=== PATIENT | male | born 1990 | race Two or more races ===

== ENCOUNTER 2021-08-26 16:30 | Emergency (ER) | payer SELFPAY ==
--- NOTE | 2021-08-26 16:52 | EDM.PDOC ---
ED HPI GENERAL MEDICAL PROBLEM - General Chief Complaint: Upper Extremity Injury/Pain Stated Complaint: FELL Time Seen by Provider: 08/26/21 16:43 Source of Information: Reports: Patient History Limitations: Reports: No Limitations - History of Present Illness INITIAL COMMENTS - FREE TEXT/NARRATIVE: HISTORY AND PHYSICAL: History of present illness: The patient is a 31-year-old male who presents to the emergency room with complaints of right shoulder pain after falling off of a skateboard onto a concrete platform. The patient not take any medication prior to arrival for pain or to do any ice. Patient denies any fever, chills, headache, change in vision, syncope or near syncope. Denies any chest pain, back pain, shortness of breath or cough. Denies any abdominal pain, nausea, vomiting, diarrhea, constipation or dysuria. Has not noted any blood in urine or stool. Patient has been eating and drinking appropriately. Review of systems: As per history of present illness and below otherwise all systems reviewed and negative. Past medical history: As per history of present illness and as reviewed below otherwise noncontributory. Surgical history: As per history of present illness and as reviewed below otherwise noncontributory. Social history: See social history for further information Family history: As per history of present illness and as reviewed below otherwise noncontributory. Physical exam: General: Well developed and well nourished. Alert and orientated x 3. Nontoxic in appearance and in no acute distress. Vital signs are stable and have been reviewed by me. Nursing notes were reviewed. HEENT: Atraumatic, normocephalic, pupils equal and reactive bilaterally, negative for conjunctival pallor or scleral icterus, mucous membranes moist, TMs normal bilaterally, throat clear, neck supple, nontender, trachea midline. No drooling or trismus noted. No meningeal signs. No hot potato voice noted. Lungs: Normal work of breathing, no accessory muscles used. Skin: Intact, warm, dry. No lesions or rashes noted. Hematologic: No petechiae or purpra. Mucosa appropriate color and normal nail bed color and refill. Extremities: No obvious deformities left shoulder. Unable to move patient's arm in any direction due to pain. Moves all extremities per self without difficulty or deficits, negative for cords or calf pain. Neurovascular unremarkable. Neuro: Awake, alert, oriented. Cranial nerves II through XII unremarkable. Cerebellum unremarkable. Motor and sensory unremarkable throughout. Exam nonfocal. Psychiatric: Mood and affect are appropriate. Normal thought process. Answering questions appropriately. Notes: *This patient was seen and evaluated during the 2019 SARS-CoV-2 novel coronavirus pandemic period. Community viral transmission is ongoing at time of this encounter and the emergency department is operating under pandemic response procedures. The patient is a 31-year-old male that presents to the emergency room with complaints of left shoulder pain. No obvious deformity at the collarbone. No obvious deformity at the shoulder. The patient states that he is shoulder. He does not want any pain medication. I have left shoulder x-ray. Left shoulder x-ray IMPRESSION: No fracture is identified. No glenohumeral joint subluxation or dislocation. The acromioclavicular joint appears unremarkable. I informed the patient of the negative x-ray. The patient stated, please just move my arm so I will be so great. Upon attempting to move the patient's arm he starts yelling out and bending his knees as if he is going to the ground. I informed the patient that he would need to be in an arm sling and follow-up with an orthopedic surgeon. I informed the patient that he might need to have a MRI of his shoulder. And that he could use some pain relief. The patient declined any pain medication while at the emergency department. And for the patient that he could use Motrin 600 mg every 6-8 hours for pain. The patient states that if he came to getting an MRI he would be following up on his own. The patient asked Dr. Rhodes while he was out in the hallway if his shoulder was broken as he could not move his arm without pain. Dr. Rhodes read the x-ray results and indeed the patient's arm is not fractured according to the radiology report. The patient of these results, again. I have talked with the patient about today's findings, in addition to providing specific details for plan of care. Reassessment at the time of disposition demonstrates that the patient is in no acute distress. The patient is stable for discharge, counseling was provided and we discussed in great detail signs and symptoms that would prompt them to return to the Emergency Department. Medication, follow up and supportive care measures were reviewed and discussed. Voices understanding and is agreeable to plan of care. Denies any further questions or concerns at this time. Diagnostics: Left shoulder x-ray Therapeutics: Left arm sling for joint stabilization and to promote patient comfort to wear for 48 hours or until follow-up with orthopedic surgeon. Impression: left Shoulder pain Plan: 1. You were evaluated today on an emergent basis. Your complaints of left shoulder pain was evaluated with an x-ray and was found to have no fracture. No dislocation. Your severe pain could be from a contusion from your fall or it could be from a torn ligament. I am putting you in an arm sling for 48 hours and you are to take Motrin 600 mg every 6-8 hours as needed for pain. You should make a follow-up appointment with an orthopedic surgeon or your primary care provider if the pain continues. 2. You can alternate Tylenol and ibuprofen as needed for pain and fever management. 3. We encourage you to follow up with your primary care provider and/or recommended specialist in the next few days for re-evaluation and further care/management. 4. If your symptoms should worsen, new symptoms develop or any of the signs and symptoms we discussed should arise please return to the emergency room or call 911 (if needed). Definitive disposition and diagnosis as appropriate pending reevaluation and review of above. Left Shoulder Pain Score (Numeric/FACES): 10 - Related Data Allergies Allergy/AdvReac Type Severity Reaction Status Date / Time No Known Allergies Allergy Verified 08/26/21 16:40 Home Meds: Home Meds . [No Known Home Meds] 08/26/21 [History] Review of Systems - Review of Systems Review Of Systems: Comprehensive ROS is negative, except as noted in HPI. ED EXAM, GENERAL - Physical Exam Exam: See Below (See dictation) Course - Vital Signs Last Recorded V/S: Last Vital Signs Temp 97.4 F 08/26/21 16:41 Pulse 113 H 08/26/21 16:41 Resp 15 08/26/21 16:41 BP 150/91 H 08/26/21 16:41 Pulse Ox 99 08/26/21 16:41 - Orders/Labs/Meds Orders: Active Orders 24 hr Category Date Time Status DME for Discharge [COMM] Stat Oth 08/26/21 17:42 Ordered Departure - Departure Time of Disposition: 17:43 Disposition: Home, Self-Care 01 Condition: Good Clinical Impression: Shoulder pain Qualifiers: Chronicity: acute Laterality: left Qualified Code(s): M25.512 - Pain in left shoulder - Discharge Information *PRESCRIPTION DRUG MONITORING PROGRAM REVIEWED*: Not Applicable *COPY OF PRESCRIPTION DRUG MONITORING REPORT IN PATIENT KAYLA: Not Applicable Instructions: Shoulder Pain Referrals: PCP,None [Primary Care Provider] - Forms: ED Department Discharge Additional Instructions: The following information is given to patients seen in the emergency department who are being discharged to home. This information is to outline your options for follow-up care. We provide all patients seen in our emergency department with a follow-up referral. The need for follow-up, as well as the timing and circumstances, are variable depending upon the specifics of your emergency department visit. If you don't have a primary care physician on staff, we will provide you with a referral. We always advise you to contact your personal physician following an emergency department visit to inform them of the circumstance of the visit and for follow-up with them and/or the need for any referrals to a consulting specialist. The emergency department will also refer you to a specialist when appropriate. This referral assures that you have the opportunity for follow-up care with a specialist. All of these measure are taken in an effort to provide you with optimal care, which includes your follow-up. Under all circumstances we always encourage you to contact your private physician who remains a resource for coordinating your care. When calling for follow-up care, please make the office aware that this follow-up is from your recent emergency room visit. If for any reason you are refused follow-up, please contact the [facility] Emergency Department at and asked to speak to the emergency department charge nurse. [facility] [address] [place] [id number] [address] Plan: 1. You were evaluated today on an emergent basis. Your complaints of left shoulder pain was evaluated with an x-ray and was found to have no fracture. No dislocation. Your severe pain could be from a contusion from your fall or it could be from a torn ligament. I am putting you in an arm sling for 48 hours and you are to take Motrin 600 mg every 6-8 hours as needed for pain. You should make a follow-up appointment with an orthopedic surgeon or your primary care provider if the pain continues. 2. You can alternate Tylenol and ibuprofen as needed for pain and fever management. 3. We encourage you to follow up with your primary care provider and/or recommended specialist in the next few days for re-evaluation and further care/management. 4. If your symptoms should worsen, new symptoms develop or any of the signs and symptoms we discussed should arise please return to the emergency room or call 911 (if needed). Sepsis Event Note (ED) - Focused Exam Vital Signs: Vital Signs Temp Pulse Resp BP Pulse Ox 08/26/21 16:41 97.4 F 113 H 15 150/91 H 99 - My Orders Last 24 Hours: My Active Orders 08/26/21 17:42 DME for Discharge [COMM] Stat - Assessment/Plan Last 24 Hours: My Active Orders 08/26/21 17:42 DME for Discharge [COMM] Stat
--- NOTE | 2021-08-26 17:38 | CR ---
INDICATION: Trauma. TECHNIQUE: Three views of the left shoulder. COMPARISON: None. IMPRESSION: No fracture is identified. No glenohumeral joint subluxation or dislocation. The acromioclavicular joint appears unremarkable. Dictated by David Andrade MD @ 08/26/2021 5:37:04 PM Dictated by: David Andrade MD @ 08/26/2021 17:37:22 (Electronically Signed)
== END 2021-08-26 18:22 | disposition home or self-care (01) ==
LOC: MW.ED 16:30
DX: M25.512 Pain in left shoulder (principal)
CPT/HCPCS: 73030-26-LT; 73030-LT; 99283-25

== ENCOUNTER 2022-12-02 09:08 | Emergency (ER) | payer SELFPAY | END 2022-12-02 10:10 | disposition home or self-care (01) | LOC: MW.ED 09:08 | DX: F15.20 Other stimulant dependence, uncomplicated (principal) | CPT/HCPCS: 99283 ==